=== PATIENT | male | born 1965 | race Two or more races ===

== ENCOUNTER → 2017-09-14 | Outpatient (CLI) | payer OTHER ==
--- NOTE | 2017-09-14 09:16 | Diagnostic Imaging Report ---
PROCEDURE:CHEST 2 VIEWS TECHNIQUE:PA and lateral chest totaling 4 radiographs INDICATION:Annual physical exam COMPARISON:Patients [facility], , CHEST 2 VIEWS - [place], 06/07/2016, 10:52. FINDINGS: The lungs are clear and symmetrically inflated. No pleural effusions. Normal heart size, mediastinal contour, and pulmonary vasculature. Intact skeleton. CONCLUSION: Stable normal chest. No change from May 2016. Dictated by: Shaq Carlos M.D. on 09/14/2017 at 9:18 Electronically approved by: Shaq Carlos M.D. on 09/14/2017 at 9:18
== END ==
LOC: RAD 08:21
PROVIDERS: ATTEND Internal Medicine
DX: Z00.00 Encounter for general adult medical examination without abnormal findings (principal)
CPT/HCPCS: 71046